=== PATIENT | female | born 1940 | race Caucasian/White ===

== ENCOUNTER → 2021-03-27 16:31 | Outpatient (BNVA) | payer MEDICARE, SELFPAY | PROVIDERS: PCP Family Medicine; Visit Provider Internal Medicine Cardiovascular Disease | DX: N18.9 Chronic kidney disease, unspecified (principal); R06.02 Shortness of breath; I50.33 Acute on chronic diastolic (congestive) heart failure; Z79.01 Long term (current) use of anticoagulants; I48.20 Chronic atrial fibrillation, unspecified | CPT/HCPCS: 80048; 83880; 84443; 85025 ==

== ENCOUNTER → 2021-06-28 11:15 | Outpatient (BNVA) | payer MEDICARE, SELFPAY | PROVIDERS: PCP Family Medicine; Visit Provider Internal Medicine Cardiovascular Disease | DX: I50.33 Acute on chronic diastolic (congestive) heart failure (principal); R07.9 Chest pain, unspecified; I25.10 Atherosclerotic heart disease of native coronary artery without angina pectoris; E78.2 Mixed hyperlipidemia; E03.9 Hypothyroidism, unspecified; Z87.891 Personal history of nicotine dependence; I48.20 Chronic atrial fibrillation, unspecified | CPT/HCPCS: 80048; 83880; 85025; 99215 ==

== ENCOUNTER 2021-07-02 12:12 | Outpatient (CLI) | payer MEDICARE, SELFPAY ==
[2021-07-02 13:07] LABS: Blood Urea Nitrogen 16 mg/dL (8-23); Calcium 9.9 mg/dL (8.5-10.5); Carbon Dioxide 30 mmol/L (22-29); Chloride 97 mmol/L (98-107); Glucose 93 mg/dL (65-115); NT Pro B Type Natriuretic Pept 682 pg/mL (0-450); Osmolality Calculated 287 mOsm/kg (285-295); Sodium 138 mmol/L (136-145)
== END 2021-07-02 12:13 | disposition home or self-care (01) ==
LOC: LAB 12:13
PROVIDERS: PCP Family Medicine; Visit Provider Internal Medicine Cardiovascular Disease
DX: R06.02 Shortness of breath (principal); E87.6 Hypokalemia
CPT/HCPCS: 36415; 80048; 83880

== ENCOUNTER 2021-08-13 08:06 | Day surgery (SDC) | payer MEDICARE, SELFPAY ==
[2021-08-10 13:45] VITALS: BMI 23.4
--- NOTE | 2021-08-13 08:33 | P.HP_ITS ---
Same Day Surgery H&P Indication for Procedure/HPI DATE OF PROCEDURE: August 13, 2021 CHIEF COMPLAINT/INDICATIONFOR SURGICAL PROCEDURE: Melena of unknown origin PREOP DIAGNOSIS: Melena of unknown origin PLANNED PROCEDURE: Operation Date: 08/13/21 09:30 Proposed Procedures p EGD 17348/20211(Not Applicable) - Axel Terry MD s Colonoscopy(Not Applicable) - Axel Terry MD Medications/Allergies* Home Medications Medication Instructions Recorded Confirmed Type cholecalciferol (vitamin D3) 25 25 mcg PO DAILY 03/27/21 08/10/21 History mcg (1,000 unit) capsule citalopram 20 mg tablet 20 mg PO DAILY 03/27/21 08/10/21 History clopidogrel 75 mg tablet (Plavix) 75 mg PO DAILY 03/27/21 08/10/21 History levothyroxine 137 mcg tablet 137 mcg PO DAILY 03/27/21 08/10/21 History metoprolol succinate 25 mg 25 mg PO DAILY 03/27/21 08/10/21 History tablet,extended release 24 hr albuterol sulfate 90 mcg/actuation 2 puff INHALATION Q6H PRN g 06/28/21 08/10/21 History aerosol inhaler Allergies/Adverse Reactions Allergy/AdvReac Type Severity Reaction Status Date / Time No Known Allergies Allergy Verified 06/28/21 08:52 Pertinent History/Comorbid Conditions* Medical History (Updated 06/28/21 @ 13:43 by Maria Isabel Acuna MD) History of pulmonary artery stenosis Hyperlipidemia Hypothyroidism Family History (Updated 03/27/21 @ 15:34 by Geovanna Mcgee RN) Chronic kidney disease (CKD) Brother Lung disease Mother Cancer Mother Family/Other Grandmother Denies family history of Diabetes CAD (coronary artery disease) Clotting disorder Dementia Suicide Anesthesia complication Bleeding disorder Stroke Social History Smoking and tobacco status: former smoker Alcohol intake: never Pertinent Exam Findings alert, not oriented x 3, clear to auscultation bilaterally, regular rate & rhythm, operative site marked and procedure specific exam findings Recommendations Surgery/Procedure today Coding Level of Care Code Acute 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
[2021-08-13 08:34] VITALS: BP 136/87; PULSE 115; RESP 20; TEMP 36.1; O2SAT 100
[2021-08-13] MEDS: sodium chloride 0.9% 1,000 ML 30 ML IV (08:35)
--- NOTE | 2021-08-13 08:46 | ANES.PREANE2 ---
Pre-Anesthetic Assessment Height/Weight: Height 1.73 m Weight 69.853 kg Temp Pulse Resp BP Pulse Ox 96.9 F L 115 H 20 H 136/87 100 08/13/21 08:34 08/13/21 08:34 08/13/21 08:34 08/13/21 08:34 08/13/21 08:34 Preop Diagnosis: Melena of unknown origin Operation Date: 08/13/21 09:30 Proposed Procedures p EGD 16571/11071(Not Applicable) - Axel Terry MD s Colonoscopy(Not Applicable) - Axel Terry MD Familial anesthetic complications: none Was Beta Suman taken within 24 hours: Yes (administering today before procedure) Last intake: Intake Last Liquid Date 08/12/21 Last Liquid Time 23:00 Last Solid Date 08/11/21 Last Solid Time 22:30 Social No alcohol and No tobacco Airway Cervical ROM: within normal limits Mallampati: Class II Dentition: false Pulmonary Asthma, Exertional Dyspnea and Shortness of Breath CV/HEM Atrial Fibrillation, Coronary Artery Disease (hx PCI), Congestive Heart Failure and Hypertension Patient and family states she has been trying to get echo and perfusion scan per Dr. Acuna for over a year now, but insurance has prevented this from happening. Shortness of breath has remained the same in the interim. Patient was given opportunity to reschedule procedure after obtaining these results, wants to proceed given her bowel prep None reported Hepatic None reported GI black stool Metabolic Thyroid Disease [facility] [place] None reported Neuropsych None reported Anesthetic Plan ASA status: 4 Anesthesia: MAC Risk of > 500 ml blood loss (7ml/kg in children): No Medications/Allergies Home Medications Medication Instructions Recorded Confirmed Last Taken Type cholecalciferol (vitamin D3) 25 25 mcg PO DAILY 03/27/21 08/13/21 08/11/21 History mcg (1,000 unit) capsule citalopram 20 mg tablet 20 mg PO DAILY 03/27/21 08/13/21 08/11/21 History clopidogrel 75 mg tablet (Plavix) 75 mg PO DAILY 03/27/21 08/10/21 08/10/21 History levothyroxine 137 mcg tablet 137 mcg PO DAILY 03/27/21 08/13/21 08/11/21 History metoprolol succinate 25 mg 25 mg PO DAILY 03/27/21 08/13/21 08/11/21 History tablet,extended release 24 hr simvastatin 20 mg tablet 20 mg PO DAILY #90 tab 03/27/21 08/13/21 08/11/21 Rx albuterol sulfate 90 mcg/actuation 2 puff INHALATION Q6H PRN g 06/28/21 08/13/21 3 Weeks Ago History aerosol inhaler ~07/23/21 apixaban 5 mg tablet (Eliquis) 5 mg PO BID #60 tab 06/28/21 08/10/21 08/10/21 Rx furosemide 40 mg tablet (Lasix) 40 mg PO DIRECTED #60 tab 06/28/21 08/13/21 08/11/21 Rx potassium chloride 20 mEq 20 meq PO DIRECTED #120 tab 06/28/21 08/13/21 08/11/21 Rx tablet,extended release Allergies Allergy/AdvReac Type Severity Reaction Status Date / Time No Known Allergies Allergy Verified 06/28/21 08:52 PFS Anesthesia Medical History History of pulmonary artery stenosis Hyperlipidemia Hypothyroidism Family History Mother Cancer Lung disease Family/Other Cancer Grandmother Cancer Brother Chronic kidney disease (CKD) Denies family history of Diabetes CAD (coronary artery disease) Clotting disorder Dementia Suicide Anesthesia complication Bleeding disorder Stroke Social History Smoking and tobacco status: former smoker Alcohol intake: never Data Anesthesia Cardiac Studies: No Data to Display
[2021-08-13 09:27] VITALS: BP 92/57; PULSE 79; RESP 16; TEMP 36.1; O2SAT 100
[2021-08-13 09:45] VITALS: BP 115/75; PULSE 82; RESP 18; O2SAT 97
--- NOTE | 2021-08-13 14:47 | ANE.PACU2 ---
Inpatient post-anesthesia follow up: Airway intact: Yes Vital signs: Temperature 97 F Pulse Rate 82 Respiratory Rate 18 Blood Pressure 115/75 Pulse Oximetry 97 Oxygen Delivery Me thod Room Air Oxygen Flow Rate 3 Fraction of Inspir ed Oxygen Hydration adequate: Yes Nausea and vomiting: No Pain level: 1 Mental status: Baseline
== END 2021-08-13 10:05 | disposition home or self-care (01) ==
PROVIDERS: PCP Family Medicine; Visit Provider Internal Medicine
PROC: 0DJ08ZZ Inspection of Upper Intestinal Tract, Via Natural or Artificial Opening Endoscopic (ICD-10-PCS; CPT 43235; principal; 2021-08-13 09:30)
PROC: 0DJD8ZZ Inspection of Lower Intestinal Tract, Via Natural or Artificial Opening Endoscopic (ICD-10-PCS; CPT 45378; 2021-08-13 09:30)
DX: K92.1 Melena (principal); R19.7 Diarrhea, unspecified; R63.4 Abnormal weight loss; Z68.23 Body mass index [BMI] 23.0-23.9, adult; K57.30 Diverticulosis of large intestine without perforation or abscess without bleeding; I48.91 Unspecified atrial fibrillation; I25.10 Atherosclerotic heart disease of native coronary artery without angina pectoris; I11.0 Hypertensive heart disease with heart failure; I50.9 Heart failure, unspecified; E78.5 Hyperlipidemia, unspecified; E03.9 Hypothyroidism, unspecified; Z87.891 Personal history of nicotine dependence
CPT/HCPCS: 43235; 45378; J2704; J3490; J7030

== ENCOUNTER 2021-09-14 09:29 | Outpatient (CLI) | payer MEDICARE, SELFPAY ==
[2021-09-14 09:37] VITALS: BMI 21.1
--- NOTE | 2021-09-14 09:37 | ECG_ITS ---
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 Interpretive Statements NAME OF STUDY: LEXISCAN SESTAMIBI STRESS TEST INDICATION: ASHD, CHF, PROCEDURE: At the baseline, the EKG revealed sinus bradycardia with diffuse nonspecific T wave changes. The baseline blood pressure was 112/75 mm Hg with a heart rate of 50 beats/min. Lexiscan was infused over a period of 20 seconds. A total of 0.4 milligrams of Lexiscan was infused. The stress phase was continued for a total of 5 minutes. Heart rate at the end of the stress phase was 71 with a blood pressure 113/66. The EKG at the peak infusion revealed nonspecific ST-T changes and frequent supraventricular ectopics. Sestamibi was injected 20 seconds after the Lexiscan infusion. Blood pressure at the end of the recovery phase was 101/66 with a heart rate of 65 per minute. CONCLUSION: 1. No significant EKG changes with the LexiScan infusion 2. No LexiScan induced chest pain or cardiac arrhythmia 3. Normal blood pressure and heart rate response 4. Sestamibi/sestamibi perfusion scan pending; see separate report. Electronically Signed On 09-14-2021 23:01:23 CDT by Maria Isabel Acuna M.D. [id number]
--- NOTE | 2021-09-14 09:38 | NMCV_ITS ---
NM татьяна perf SPECT r/s* [id number] Linn Balbuena Age: 80 Gender: F : 1940 Exam Date: 09/14/2021 11:18 Ordering Phys: Maria Isabel Acuna MD ([email or web address]) Technologist: NAYE Figueroa Exam Location: [facility] Indications: SHORTNESS OF BREATH STRESS TEST Please see separate stress test report in [facility] for full findings IMAGE PROTOCOL Rest/Stress 1 Lexiscan Day Radiopharmaceutical Dose (mCi) Administration Site Administered by Rest: Tc-99m 10.5 IV NAYE Figueroa Sestamibi Stress:Tc-99m 32.8 IV NAYE Figueroa Sestamibi Rest: 14-Sep-2021 60 Discovery 630 Stress: 14-Sep-2021 30 Discovery 630 0.4mg Lexiscan. Supine position only as patient was unable to lay prone. SPECT RESULTS Technical Quality: Excellent Raw Data Analysis: Normal Image Corrections: No attenuation or motion correction applied Summed Stress Score: 0 Summed Rest Score: 2 Summed Difference Score: 0 PERFUSION FINDINGS Has moderately decreased tracer because noted in the mid anterolateral region, at rest. However with the supine and with the stress imaging, no perfusion normalities were noted. FUNCTIONAL RESULTS (calculated via Gated SPECT) Stress Image LV EF (%): 77 Stress EDV (mL):78 TID: 1.02 Stress ESV (mL):18 FUNCTIONAL FINDINGS: Segmental wall motion analysis revealing no gross wall motion normalities. IMPRESSIONS 1. A small area of persistent decreased tracer uptake in the mid anterolateral region, most likely representing attrition artifact. 2. Normal LV ejection fraction of 77%. 3. LV wall motion analysis revealing no gross wall motion normalities 4. Normal LV volume. Low probability for coronary ischemia, based on the above findings Dr Maria Isabel Acuna MD [facility] (Electronically Signed) Final Date: 14 Sep 2021 14:46 S
[2021-09-14] MEDS: regadenoson 0.4 Mg/5 ml Syringe IVP (11:46)
[2021-09-14] MEDS: aminophylline 25 mg/mL SDV 10 mL IVP ×2 (12:08→12:11)
[2021-09-14 12:16] VITALS: BP 105/67; PULSE 57
== END 2021-09-14 09:30 | disposition home or self-care (01) ==
LOC: CDL 09:33
PROVIDERS: PCP Family Medicine; Visit Provider Internal Medicine Cardiovascular Disease
DX: R06.02 Shortness of breath (principal)
CPT/HCPCS: 78452; A9500; J0280; J2785